=== PATIENT | male | born 1960 | race Caucasian/White ===

== ENCOUNTER 2019-09-22 17:29 | Emergency (ER) | payer MEDICAID ==
[~2019-09-22] VITALS: Ht 185.4 cm; Wt 74.0 kg
[2019-09-22 17:34] VITALS: BP 134/94
[2019-09-22] MEDS ORDERED: OXYcodone/APAP 10/325MG TABLET ONE (18:06)
--- NOTE | 2019-09-22 18:08 | NUR ---
PT MEDICATED FOR 5/10 LLQ ABD PAIN.
[2019-09-22] MEDS ORDERED: OXYcodone/APAP 10/325MG TABLET PO ONE (18:30)
--- NOTE | 2019-09-22 18:35 | NUR ---
PT STATES PAIN HAS DECREASED SINCE PAIN MEDICATION AND APPLICATION OF ICE. REGISTRATION AT BEDSIDE.
--- NOTE | 2019-09-22 18:53 | NUR ---
REPORT TO DMITRI KING TO ASSUME PRIMARY CARE OF PT.
[2019-09-22] MEDS ORDERED: FAMOTIDINE 20 MG TABLET PO ONE (19:00)
[2019-09-22] MEDS ORDERED: CALCIUM CARBONATE 500 MG TAB.CHEW PO ONE (19:00)
--- NOTE | 2019-09-22 19:05 | NUR ---
Report received from DMITRI Arcos. This RN to assume care.
[2019-09-22] MEDS ORDERED: CALCIUM CARBONATE 500 MG TAB.CHEW ONE (19:10)
[2019-09-22] MEDS ORDERED: FAMOTIDINE 20 MG TABLET ONE (19:10)
--- NOTE | 2019-09-22 19:50 | NUR ---
Discharge instructions given. All questions and concerns addressed. Patient ambulatory with a steady gait. Belongings with patient.
== END 2019-09-22 19:52 | disposition home or self-care (01) ==
LOC: ED 18:36
DX: K40.91 Unilateral inguinal hernia, without obstruction or gangrene, recurrent (principal); K21.9 Gastro-esophageal reflux disease without esophagitis
CPT/HCPCS: 99284

== ENCOUNTER 2019-09-29 12:33 | Emergency (ER) | payer MEDICAID ==
[~2019-09-29] VITALS: Ht 185.4 cm; Wt 73.5 kg
[2019-09-29 12:44] VITALS: BP 153/87
== END 2019-09-29 13:01 ==
LOC: ED 12:44
DX: K02.9 Dental caries, unspecified (principal); L03.213 Periorbital cellulitis; R21 Rash and other nonspecific skin eruption
CPT/HCPCS: 99283